=== PATIENT | male | born 1940 | race Caucasian/White ===

== ENCOUNTER 2024-01-15 06:22 | Inpatient (IN) | payer MEDICARE, SELFPAY ==
--- NOTE | 2023-12-13 08:14 | CM ---
Patient is scheduled for an elective L THR on 01/15/24. Spoke with patient and his prior to surgery via telephone. Introduced role of Orthopedic Navigator. They report that they live in a second floor condo. There are no steps to enter and a
flight of steps to his condo. He currently functions independently. He has a raised toilet seat. He has never had VN services. PCP is Rei Martinez.
Discussed orthopedic program and post surgical plans. Reviewed anticipated length of stay and that goal is for him to return home at discharge. Also reviewed outpatient PT. They are in agreement with tentative plan but are concerned about patient
going directly to outpatient PT since they have so many steps to enter and would prefer VN services. Patient will have support from his when he goes home.
Patient will complete online education.
Plan: Orthopedic Navigator will remain available to assist with the care of patient and will reassess discharge needs after surgery.
[2023-12-27 09:02] VITALS: BMI 23.8
[2023-12-27 10:07] LABS: Hematocrit 40.1 % (39.0-52.0); Hemoglobin 13.6 g/dL (13.0-18.0); Mean Corp Hgb Conc. 33.9 g/dL (33.0-37.0); Mean Corpuscular Hgb 32.4 pg (27.0-31.0); Mean Corpuscular Volume 95.5 fL (80.0-94.0); Mean Platelet Volume 11.9 fL (7.4-10.4); Platelet Count 150 10^3/uL (130-400); Red Cell Dist. Width 13.2 % (11.5-14.5); White Blood Cell Count 4.6 10^3/uL (4.8-10.8)
[2023-12-27 10:30] LABS: ALT (SGPT) 22 U/L (0-50); AST (SGOT) 38 U/L (17-59); Alkaline Phosphatase 69 U/L (38-126); Blood Urea Nitrogen 15 mg/dl (9-20); Calcium 8.7 mg/dl (8.4-10.2); Carbon Dioxide 26 mmol/L (22-30); Chloride 106 mmol/L (98-107); Estimated Creatinine Clearance 70 ml/min; Glucose 87 mg/dl (70-99); Potassium 4.4 mmol/L (3.5-5.1); Sodium 136 mmol/L (135-145); Total Bilirubin 1.1 mg/dl (0.2-1.3); Total Protein 6.6 g/dl (6.3-8.2); eGFR > 60.00
[2023-12-27 10:51] LABS: Glycohemoglobin (HgbA1c) 5.5 % (4.0-5.6)
[2023-12-27 15:14] VITALS: BMI 23.8
[2024-01-15] VITALS (12 sets, daily range): BP systolic 115–155; BP diastolic 66–82; PULSE 56–60; O2SAT 98–100; BMI 23.8
[2024-01-15] MEDS: CELEBREX 200 MG PO (07:05)
[2024-01-15] MEDS: NORMOSOL-R 1000 IV ×2 (07:05→10:12)
[2024-01-15] MEDS: TYLENOL 650 MG PO ×4 (07:05→20:15)
[2024-01-15] MEDS: ROXICODONE 5 MG PO (10:15)
--- NOTE | 2024-01-15 10:58 | PTCARENOTE ---
1045: Patient arrived to unit, denies pain at this time. Head to toe assessment completed. Neurovascular assessment completed. Patient has limited sensation in bilateral LE. Patient can slightly move toes. L hip dressing clean dry and intact. IVF
infusing per order. Patient oriented to unit. Call lainez within reach and spouse at bedside.
[2024-01-15] MEDS: TYLENOL PO (11:18)
[2024-01-15] MEDS: ANCEF 5 IV ×2 (15:43→23:22)
[2024-01-15] MEDS: XALATAN OPHTHALMIC SOLUTION 1 DROP OPHTH (17:24)
[2024-01-15] MEDS: ASPIRIN 325 MG PO (17:25)
[2024-01-15] MEDS: LIPITOR 20 MG PO (17:25)
[2024-01-15] MEDS: COLACE 100 MG PO (20:16)
[2024-01-15] MEDS: DECADRON 4 MG PO (20:16)
[2024-01-15] MEDS: SENOKOT 17.1999999999999993 MG PO (20:16)
[2024-01-15] MEDS: TORADOL 15 MG IV (20:18)
[2024-01-15] MEDS: BACTROBAN 2% OINTMENT 1 APPLIC NASAL (20:19)
[2024-01-15] MEDS: NEURONTIN 300 MG PO (23:22)
[2024-01-15] MEDS: PEPCID 20 MG PO (23:22)
[2024-01-16] MEDS: TYLENOL PO ×2 (00:29→05:02)
[2024-01-16 03:48] VITALS: BP 102/56
[2024-01-16 07:00] VITALS: BP 133/65
[2024-01-16] MEDS: TYLENOL 650 MG PO ×2 (07:36→11:46)
[2024-01-16] MEDS: COLACE 100 MG PO (07:36)
[2024-01-16] MEDS: DECADRON 4 MG PO (07:37)
[2024-01-16] MEDS: SENOKOT 17.1999999999999993 MG PO (07:37)
[2024-01-16] MEDS: ASPIRIN 325 MG PO (07:37)
[2024-01-16] MEDS: CELEBREX 200 MG PO (07:37)
[2024-01-16] MEDS: TORADOL 15 MG IV (07:37)
[2024-01-16] MEDS: COZAAR 12.5 MG PO (07:40)
[2024-01-16] MEDS: BACTROBAN 2% OINTMENT 1 APPLIC NASAL (07:50)
--- NOTE | 2024-01-16 08:43 | W.PN.ORTHO ---
Today's Communication / Plan
-
d/c
Assessment
.
Distal Motor Intact: Yes
Dressing:
Clean, dry and intact.
Plan
.
Surgery / Date: Mak Child 01/15/24
DVT Prophylaxis: Aspirin
Activity:
Out of bed.
PT/OT
Discharge Plan: Home w/ VN
Subjective
.
.:
Patient resting comfortably.
Vital Signs and Labs
.
Vital Signs and Labs:
Lab Results
12/27/23 08:55
12/27/23 08:55
Temp Pulse Resp BP Pulse Ox
98.4 F 64 16 133/65 98
01/16/24 07:00 01/16/24 07:40 01/16/24 07:00 01/16/24 07:40 01/16/24 07:00
Non-invasive Hgb result: 11.5
Physical Exam
-
HEENT: No pallor, cyanosis, or jaundice. Throat clear.
NECK: Supple. No JVD.
RESPIRATORY: Lungs clear to auscultation.
CVS: S1, S2 normal. RRR.� No murmur, rub or gallop.
ABDOMEN: Soft, non-tender. No distension. BS+/normal.
EXTREMITIES: strength equal, no calf pain with palpation
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 No focal deficits. 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
--- NOTE | 2024-01-16 08:48 | W.DS.TRANS ---
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
-
Discharge Instructions:
Sleep Apnea Risk Intermediate
Discharge Diagnosis/Procedures L RAMSES Child 01/15/24
Diet As tolerated
Activity With Walker
Driving Restrictions No driving
Bathing Restrictions OK to Shower
Other Services PT,VN,OT
Instructions:
Stand-Alone Forms: Total Hip/Knee Replacement D/C
Changes to Home Medications: Yes
Discharge Medications:
DC Medications w/original date entered in K121
ascorbic acid (vitamin C) 500 mg tablet (Vitamin C) 500 mg PO DAILY Supplement 12/22/23
atorvastatin 20 mg tablet 20 mg PO DAILY High Cholesterol 12/22/23
cholecalciferol (vitamin D3) 25 mcg (1,000 unit) chewable tablet (Vitamin D3) 25 mcg PO DAILY Supplement 12/22/23
epinephrine 0.3 mg/0.3 mL injection, auto-injector (EpiPen) 0.3 mg IM ONCE PRN bee sting 12/22/23
ibuprofen 200 mg tablet (Advil) 200 mg PO Q6H PRN pain 12/22/23
ketoconazole 2 % topical cream 1 applic topical DAILY psoriasis rt knee spots 12/22/23
latanoprost 0.005 % eye drops 1 drp ophthalmic (eye) QPM Eye Condition 12/22/23
losartan 50 mg tablet 50 mg PO DAILY Blood Pressure 12/22/23
nadolol 20 mg tablet 10 mg PO MOWEFR Blood Pressure 12/22/23
triamcinolone acetonide-l.s.b. 1 applic topical DAILY face cream for rash 12/22/23
mupirocin 2 % topical ointment 1 applic topical BID infection prevention #1 tube 12/27/23
acetaminophen 325 mg capsule (Tylenol) 650 mg PO QID #2 caps 01/16/24
aspirin 325 mg tablet 325 mg PO DAILY blood clot prevention #1 tab 01/16/24
celecoxib 200 mg capsule 200 mg PO DAILY anti-inflammatory #14 caps 01/16/24
dexamethasone 4 mg tablet 4 mg PO BID inflammation #6 tabs 01/16/24
docusate sodium 100 mg capsule (Colace) 100 mg PO BID stool softner #1 cap 01/16/24
famotidine 20 mg tablet 20 mg PO HS GI prophylaxis #30 tabs 01/16/24
gabapentin 300 mg capsule 300 mg PO HS sleep/pain #10 caps 01/16/24
magnesium hydroxide 400 mg/5 mL oral suspension (Milk of Magnesia) 30 ml PO HS PRN Constipation #1 mL 01/16/24
oxycodone 5 mg tablet 5 - 10 mg PO Q6HPRN PRN 1 tab moderate-2 tabs severe pain #30 tabs 01/16/24
sennosides 8.6 mg tablet (Senokot) 17.2 mg PO BID laxative #2 tabs 01/16/24
Home Medication Changes
aspirin 325 mg tablet 325 mg PO DAILY blood clot prevention #1 tab 01/16/24
celecoxib 200 mg capsule 200 mg PO DAILY anti-inflammatory #14 caps 01/16/24
dexamethasone 4 mg tablet 4 mg PO BID inflammation #6 tabs 01/16/24
famotidine 20 mg tablet 20 mg PO HS GI prophylaxis #30 tabs 01/16/24
gabapentin 300 mg capsule 300 mg PO HS sleep/pain #10 caps 01/16/24
oxycodone 5 mg tablet 5 - 10 mg PO Q6HPRN PRN 1 tab moderate-2 tabs severe pain #30 tabs 01/16/24
Pending Results: No
--- NOTE | 2024-01-16 08:53 | CM ---
Addendum entered by Karolina Pantoja 01/16/24 11:40:
Patient worked with PT and OT and is min assist overall. Met with patient, his and daughter after therapy. understands need for hands on assist with all mobility and will be able to provide this. VN services were reviewed.
Original Note:
Reviewed chart and held rounds with PT, OT and nursing. Patient admitted as planned for elective L THR. Met with patient at bedside. Confirmed information previously obtained for assessment. Also discussed discharge plans. The plan is for patient to
return home at discharge. He will have support from his when he goes home. Reviewed VN services including start of care (tentatively 01/16), services to be ordered (PT, OT, SN) and frequency/duration of services. Options list provided and PAC
data reviewed. Patient selects [facility].
Patient has all needed DME at home.
VN referral was completed and sent to [facility] through [employer] with request for start of care on 01/16. Confirmation received of their ability to accept case. archival records clerk to fax discharge instructions to [facility] when complete.
Patient will use [facility] pharmacy for discharge prescriptions.
Discharge plans were reviewed with patient's on 01/14. She and their daughter will be present for therapy today.
[2024-01-16 10:30] VITALS: BP 109/63; PULSE 66; O2SAT 97
[2024-01-16 11:00] VITALS: BP 127/66
[2024-01-16 11:33] VITALS: BP 114/57; BP 127/66; PULSE 67; O2SAT 100
== END 2024-01-16 12:35 | disposition home health service (06) | DRG 470 ==
LOC: 2 SOUTH 06:22
PROVIDERS: ADMITTING PHYSICIAN Specialist; FAMILY PHYSICIAN Family Medicine
PROC: 0SRB04A Replacement of Left Hip Joint with Ceramic on Polyethylene Synthetic Substitute, Uncemented, Open Approach (ICD-10-PCS; 2024-01-15)
DX: M16.12 Unilateral primary osteoarthritis, left hip (principal); I47.19 Other supraventricular tachycardia; I10 Essential (primary) hypertension; E78.5 Hyperlipidemia, unspecified; H53.9 Unspecified visual disturbance; G24.4 Idiopathic orofacial dystonia; F10.90 Alcohol use, unspecified, uncomplicated; Z79.82 Long term (current) use of aspirin; Z87.891 Personal history of nicotine dependence
CPT/HCPCS: 36415; 73502; 80053; 83036; 85027; 87070; 97110; 97116; 97162; 97166; 97530; 97535; C1713; C1776

== ENCOUNTER → 2024-09-30 10:35 | Outpatient (REF) | payer MEDICARE, SELFPAY | LOC: EMG 10:35 | PROVIDERS: ATTENDING PHYSICIAN Orthopaedic Surgery; FAMILY PHYSICIAN Family Medicine | DX: R20.0 Anesthesia of skin (principal) | CPT/HCPCS: 95886; 95909 ==

== ENCOUNTER → 2025-04-29 13:48 | Outpatient (REF) | payer MEDICARE, SELFPAY | LOC: EMG 13:48 | PROVIDERS: ATTENDING PHYSICIAN Orthopaedic Surgery; FAMILY PHYSICIAN Family Medicine | DX: R20.0 Anesthesia of skin (principal); G56.02 Carpal tunnel syndrome, left upper limb | CPT/HCPCS: 95886; 95909 ==